=== PATIENT | male | born 1995 | race Caucasian/White ===

== ENCOUNTER → 2024-01-23 | Outpatient (REF) | payer BC, SELFPAY | LOC: DHSLP | PROVIDERS: ATTENDING PHYSICIAN Internal Medicine; FAMILY PHYSICIAN Physician Assistant Medical | DX: G47.30 Sleep apnea, unspecified (principal); R06.83 Snoring; G47.8 Other sleep disorders; R40.0 Somnolence | CPT/HCPCS: 95800 ==